=== PATIENT | female | born 1965 | race Caucasian/White ===

== ENCOUNTER 2021-07-12 12:39 | Emergency (ER) | payer MEDICAID ==
[~2021-07-12] VITALS: Ht 157.5 cm; Wt 43.1 kg
[2021-07-12 12:40] VITALS: BP_SYST 9
--- NOTE | 2021-07-12 12:45 | NUR ---
56 years old female biba from [facility] s/p mechanical fall, c/o left leg pain able to move all extremities Dr Parish at bedside.
[2021-07-12 14:27] VITALS: BP_SYST 127
--- NOTE | 2021-07-12 14:30 | NUR ---
patient condition stable no fracture d/c home with after care reviewed understood.
--- NOTE | 2021-07-12 14:31 | NUR ---
Patient given written and verbal discharge instructions and verbalizes understanding. ER MD discussed with patient the results and treatment provided. Patient in stable condition. ID arm band removed. Rx of given. Patient educated on pain management and to follow up with PMD. Pain Scale . Opportunity for questions provided and answered. Medication side effect fact sheet provided.
== END 2021-07-12 14:31 | disposition home or self-care (01) ==
LOC: SED 12:39
DX: S80.12XA Contusion of left lower leg, initial encounter (principal); W01.0XXA Fall on same level from slipping, tripping and stumbling without subsequent striking against object, initial encounter; Y93.89 Activity, other specified; Y92.89 Other specified places as the place of occurrence of the external cause; Y99.8 Other external cause status
CPT/HCPCS: 73552; 99283